=== PATIENT | male | born 1975 | race Caucasian/White ===

== ENCOUNTER 2016-06-05 21:35 | Inpatient (IN) | payer MEDICARE ==
[~2016-06-05] VITALS: Ht 188 cm; Wt 153.9 kg
--- NOTE | 2016-06-05 22:58 | PHYS DOC ---
Past Medical History Past Medical History: Anxiety, Depression Past Surgical History: No Surgical History Alcohol Use: None Drug Use: None Adult General Chief Complaint Chief Complaint: ABDOMINAL PAIN HPI HPI Patient is a 41 year old male who presents with cold symptoms. Patient reports since this weekend he has been having cough, chills, sweating, feeling like he can't breathe. Patient denies any chest pain. He does report a history of anxiety and panic attacks. He says he hasn't taken his Xanax since last week. He did see his PCP and started azithromycin today. No other acute complaints. Review of Systems Review of Systems Constitutional: Chills, sweating Eyes: Denies change in visual acuity or eye pain HENT: Denies nasal congestion or sore throat Respiratory: Cough, shortness of breath Cardiovascular: Denies chest pain GI: Denies abdominal pain, nausea, vomiting, bloody stools or diarrhea : Denies dysuria or hematuria Musculoskeletal: Denies back pain or joint pain Integument: Denies rash or skin lesions Neurologic: Denies headache, focal weakness or sensory changes Current Medications Current Medications Current Medications Medications (Trade) Dose Ordered Sig/Mariely Start Time Stop Time Status Last Admin Dose Admin Lorazepam 1 mg 1 mg 1X ONCE 06/05/16 23:15 06/05/16 23:16 DC 06/05/16 23:29 1 MG Sodium Chloride (Iv Sodium Chloride 0.9% 1000ml Bag) 1,000 ml @ 1,000 mls/hr 1X ONCE 06/06/16 00:00 06/06/16 00:59 DC 06/06/16 00:02 1,000 MLS/HR Allergies Allergies Allergies Coded Allergies Type Severity Reaction Last Updated Verified No Known Drug Allergies 06/05/16 No Physical Exam Physical Exam Constitutional: Well developed, well nourished. Markedly diaphoretic HENT: Normocephalic, atraumatic, bilateral external ears normal Eyes: EOMI, conjunctiva normal, no discharge Neck: Normal range of motion, no stridor Cardiovascular: Heart rate normal, regular rhythm, no murmur Lungs & Thorax: Bilateral breath sounds clear to auscultation Abdomen: Bowel sounds normal, soft, non-distended, mild epigastric TTP without guarding or rebound Skin: Warm, dry, no erythema, no rash Extremities: No obvious deformity, no edema Neurologic: Alert and oriented X 3, no gross deficits noted Psychologic: Anxious Current Patient Data Vital Signs Vital Signs Date Time Temp Pulse Resp B/P Pulse Ox O2 Delivery O2 Flow Rate FiO2 06/06/16 00:25 84 18 162/100 97 Room Air 06/05/16 22:32 99.1 99.1 Lab Values Laboratory Tests Test 06/05/16 22:10 06/05/16 22:26 Influenza Type A Antigen Negative (NEGATIVE) Influenza Type B Antigen Negative (NEGATIVE) White Blood Count 16.1x10^3/uL (4.0-11.0) H Red Blood Count 5.39x10^6/uL (4.30-5.70) Hemoglobin 16.4g/dL (13.0-17.5) Hematocrit 49.0% (39.0-53.0) Mean Corpuscular Volume 91fL (79-100) Mean Corpuscular Hemoglobin 31pg (25-35) Mean Corpuscular Hemoglobin Concent 34g/dL (31-37) Red Cell Distribution Width 12.9% (11.5-14.5) Platelet Count 297x10^3/uL (140-400) Neutrophils (%) (Auto) 75% (31-73) H Lymphocytes (%) (Auto) 18% (24-48) L Monocytes (%) (Auto) 7% (0-9) Eosinophils (%) (Auto) 0% (0-3) Basophils (%) (Auto) 0% (0-3) Neutrophils # (Auto) 12.0x10^3uL (1.8-7.7) H Lymphocytes # (Auto) 2.8x10^3/uL (1.0-4.8) Monocytes # (Auto) 1.1x10^3/uL (0.0-1.1) Eosinophils # (Auto) 0.1x10^3/uL (0.0-0.7) Basophils # (Auto) 0.0x10^3/uL (0.0-0.2) Sodium Level 141mmol/L (136-145) Potassium Level 4.0mmol/L (3.5-5.1) Chloride Level 103mmol/L (98-107) Carbon Dioxide Level 24mmol/L (21-32) Anion Gap 14 (6-14) Blood Urea Nitrogen 19mg/dL (8-26) Creatinine 1.2mg/dL (0.7-1.3) Estimated GFR (Cockcroft-Gault) 66.1 Glucose Level 115mg/dL (70-99) H Lactic Acid Level 3.0mmol/L (0.4-2.0) H Calcium Level 9.8mg/dL (8.5-10.1) Total Bilirubin 0.5mg/dL (0.2-1.0) Direct Bilirubin 0.1mg/dL (0.0-0.2) Aspartate Amino Transferase (AST) 33U/L (15-37) Alanine Aminotransferase (ALT) 59U/L (16-63) Alkaline Phosphatase 63U/L (46-116) Troponin I Quantitative < 0.017ng/mL (0.000-0.055) Total Protein 8.2g/dL (6.4-8.2) Albumin 4.6g/dL (3.4-5.0) Lipase 202U/L (73-393) Laboratory Tests 06/05/16 22:26 Laboratory Tests 06/05/16 22:26 EKG EKG EKG (my read): sinus rhythm, rate 84, normal axis, intervals wnl, no acute ischemic changes Radiology/Procedures Radiology/Procedures CXR (my read): Patchy opacity R lung Course & Med Decision Making Course & Med Decision Making Pertinent Labs and Imaging studies reviewed. (See chart for details) Patient is 41-year-old male who presents with cough, diaphoresis. Apparent respiratory infection, viral versus bacterial. Will obtain labs, EKG, chest x- ray to evaluate. Fluid bolus, dose of Ativan ordered for relief of symptoms. Labs notable for leukocytosis, elevated lactic acid. Given this, patient will need admission and coverage with antibiotics. Already had 500 mg azithromycin earlier today, will add Rocephin. Discussed with Dr. Almanza (national accounts recruiter for Dr. Pérez), will admit under his care for further evaluation and treatment. Dragon Disclaimer Dragon Disclaimer This electronic medical record was generated, in whole or in part, using a voice recognition dictation system. Departure Departure Impression: Primary Impression: Community acquired pneumonia Additional Impression: Elevated lactic acid level Disposition: ADMITTED INPATIENT Admitting Physician: Nawaf Almanza Condition: STABLE Referrals: PAVAN PÉREZ MD (PCP) Problem Qualifiers JEY SWANN MD Jun 05, 2016 22:58
[2016-06-05 23:11] LABS: BASO % 0 % (0-3); EOS % 0 % (0-3); HEMOGLOBIN 16.4 g/dL (13.0-17.5); LYMPH # 2.8 x10^3/uL (1.0-4.8); LYMPH % 18 % (24-48); MEAN CORPUSCULAR HEMOGLOBIN 31 pg (25-35); MEAN CORPUSCULAR HGB CONC 34 g/dL (31-37); MEAN CORPUSCULAR VOLUME 91 fL (79-100); MONO % 7 % (0-9); NEUT % 75 % (31-73); PLATELET COUNT 297 x10^3/uL (140-400); RED BLOOD COUNT 5.39 x10^6/uL (4.30-5.70); RED CELL DISTRIBUTION WIDTH 12.9 % (11.5-14.5); WHITE BLOOD COUNT 16.1 x10^3/uL (4.0-11.0)
[2016-06-05] MEDS ORDERED: LORAZEPAM 2 MG/ML VIAL IV ONE (23:15)
[2016-06-05 23:23] LABS: CALCIUM 9.8 mg/dL (8.5-10.1); CREATININE 1.2 mg/dL (0.7-1.3); GFR 66.1
[2016-06-05 23:29] LABS: ALBUMIN 4.6 g/dL (3.4-5.0); DIRECT BILIRUBIN 0.1 mg/dL (0.0-0.2); TOTAL BILIRUBIN 0.5 mg/dL (0.2-1.0); TOTAL PROTEIN 8.2 g/dL (6.4-8.2)
[2016-06-06 00:29] LABS: OBC FLU VALID
[2016-06-06] MEDS ORDERED: MORPHINE SULFATE 2 MG/ML DISP.SYRIN. IV PRN (01:30)
[2016-06-06] MEDS ORDERED: ACETAMINOPHEN 325 MG TABLET. PO PRN (01:30)
[2016-06-06] MEDS ORDERED: IV NORMAL SALINE 1000ML BAG 1,000 ML IV ONE ×2 (01:30)
[2016-06-06] MEDS ORDERED: ONDANSETRON PF 4 MG/2 ML VIAL. IV PRN (01:30)
[2016-06-06] MEDS ORDERED: CEFTRIAXONE 1GM IVPB FOR OMNI 50 ML IV ONE (01:30)
[2016-06-06 01:43] LABS: BILIRUBIN,URINE NEGATIVE (NEG); GLUCOSE,URINE NEGATIVE (NEG); NITRITE,URINE NEGATIVE (NEG); PH,URINE 5.5; PROTEIN,URINE NEGATIVE (NEG-TRACE); UROBILINOGEN,URINE 0.2 mg/dL (0.2 mg/dL)
[2016-06-06 01:49] LABS: BACTERIA,URINE 0 /HPF (0-FEW); RBC,URINE 0 /HPF (0-2); SQUAMOUS EPITHELIAL CELL,UR OCC /LPF; WBC,URINE OCC /HPF (0-4)
[2016-06-06 03:45] VITALS: BP 176/91
[2016-06-06] MEDS: IV NORMAL SALINE 1000ML BAG 1,000 ML IV SCH ×3 (04:34→21:08)
[2016-06-06] MEDS ORDERED: ALPR1TAB2 PO (05:14)
[2016-06-06] MEDS ORDERED: CITA40TA12 PO (05:14)
[2016-06-06] MEDS ORDERED: NICO1PAT21 TD (05:14)
[2016-06-06] MEDS ORDERED: ALPR2TAB2 PO (05:14)
--- NOTE | 2016-06-06 06:44 | EKG ---
[facility] [address] [place] [address] Test Date: 2016-06-05 Test Time: 22:15:49 Pat Name: LIO CHAIREZ Department: Room: 524 1 Gender: M [employer] Installer: : 1975 Requested By: JEY SWANN Order Number: [id number] Reading MD: Roberta Mullins Measurements Intervals [place] Rate: 84 P: 51 UT: 186 QRS: 11 QRSD: 98 T: 20 QT: 336 QTc: 400 Interpretive Statements SINUS RHYTHM NORMAL EKG RI6.01 No previous ECG available for comparison Electronically Signed On 06-11-2016 14:32:33 [employer] by Roberta Mullins
[2016-06-06 07:00] VITALS: BP 148/91
[2016-06-06 08:00] LABS: NEGATIVE OBC STREP NEG; POSITIVE OBC STREP POS
--- NOTE | 2016-06-06 08:04 | RAD ---
Indication cough. Dizziness. PA and lateral views of the chest were obtained. No prior imaging of the chest is available. The heart and pulmonary vessels appear normal. The lungs are clear. There is no pleural fluid or pneumothorax. IMPRESSION: No acute finding apparent in the chest
[2016-06-06] MEDS: CITALOPRAM 20 MG TABLET. PO SCH (08:17)
[2016-06-06] MEDS: ALPRAZOLAM 1 MG TABLET PO PRN ×3 (08:17→21:07)
[2016-06-06] MEDS ORDERED: AZITHRMYCN 500MG IVPB FOR OMNI 250 ML IV ONE (08:45)
--- NOTE | 2016-06-06 08:55 | PDOC ---
Provider Note Provider Note H&P dictated # [id number] Patricia CASILLAS MD Jun 06, 2016 08:55
[2016-06-06] MEDS ORDERED: AZITHROMYCIN 500 MG in IV NORMAL SALINE 250ML 250 ML IV ONE (09:00)
--- NOTE | 2016-06-06 09:59 | HP ---
ADMIT DATE: 06/06/2016 ADMISSION DIAGNOSES: Leukocytosis with elevated lactic acid and systemic inflammatory response syndrome, possible community-acquired pneumonia. HISTORY OF PRESENT ILLNESS: This is a 41-year-old white male with history of anxiety and panic disorder who has had a cold over the last week or so. He saw Dr. Traore in the office yesterday and was prescribed a Z-REBEKAH and took the first dose, but felt tightening in his throat and felt like he could not breathe and presented to the Emergency Room because of that. Evaluation there revealed a white count elevated at 16,000 and the lactic acid was elevated over 3. He had a low grade temperature. He denies cough or significant other pulmonary symptoms, but was initially thought on his x-ray to have an infiltrate. The radiologist reading of the infiltrate is that it is clear, though. He got admitted to the room this morning about 4:00 a.m., but had not had much sleep. A dose of Ativan in the Emergency Room did not allow him to sleep, but he just had a dose of Xanax. He remains anxious, but not particularly dyspneic. PAST MEDICAL HISTORY: Significant for hypertension, panic disorder, depression and anxiety. HOME MEDICATIONS: Include alprazolam 2 mg at bedtime and 1 mg q. 6h. p.r.n., Celexa 40 mg daily and he has been on a nicotine patch. ALLERGIES: He has no known drug allergies. FAMILY HISTORY: Noncontributory. SOCIAL HISTORY: Positive for past tobacco use. REVIEW OF SYSTEMS: Denies chest pain. RESPIRATORY: Positive for cold symptoms over the last week. ENT: Significant for some sensation of nasal fullness. Eyes are negative. ABDOMEN: Negative. GASTROINTESTINAL: Negative. GENITOURINARY: Negative. MUSCULOSKELETAL: He has had some vague numbness in the left lateral leg. Denies any other muscular pain or joint pains. He has not had any edema. PHYSICAL EXAMINATION: VITAL SIGNS: He has been afebrile since admission. His blood pressures have been as high as 176/91 currently. He is on room air with oxygen saturations in the 90s. GENERAL: He is anxious. He is not tachycardic or tachypneic. Sinuses do not appear full. HEENT: Conjunctivae are clear. No allergic features. CARDIOVASCULAR: Heart is regular rate and rhythm. LUNGS: Right side has some rhonchi and the left side is clear. ABDOMEN: Obese. EXTREMITIES: There is no clubbing, cyanosis or peripheral edema. LABORATORY DATA: Show white count 16.1, hemoglobin 16.4, hematocrit 49, platelets 297. There is a left shift with 75% neutrophils and only 18% lymphocytes. Chemistries: His lactic acid is 3 that has dropped down to 1.5 this morning. Troponin is negative. Chemistries are unremarkable with glucose of 115. Urinalysis is unremarkable. Serology is negative for flu A and B and for group A strep. Chest x-ray read by the radiologist is unremarkable. ASSESSMENT: Leukocytosis with lactic acidosis after a week of upper respiratory infection symptoms. He was treated as an outpatient starting yesterday with antibiotic, so likely he has got pneumonia with hydration show up on his chest x-ray tomorrow. PLAN: He is admitted. We will cover him with IV ceftriaxone and IV azithromycin. We will treat his panic. He is being hydrated per protocol. W Kimberly CASILLAS MD DR: GLORIA/ricki JOB#: [id number] / [id number]
[2016-06-06 11:00] VITALS: BP 140/95
[2016-06-06 15:00] VITALS: BP 137/95
[2016-06-06 19:00] VITALS: BP 149/94
--- NOTE | 2016-06-06 21:13 | ACF ---
Admission Forms Criteria PNEUMONIA, COMMUNITY ACQUIRED Clinical Indications for Admission to Inpatient Care ( Place 'X' for any and all applicable criteria): Admission is indicated for ANY ONE of the following (1)(2)(3): [ ]I. Hypoxemia indicated by ANY ONE of the following: [ ]a) Oxygen saturation less than 90% while breathing room air [ ]b) PO2 less than 60 mm Hg (8.0 kPa) while breathing room air [ ]c) Chronic lung disease with significant deterioration from baseline oxygenation [ ]II. Appropriate diagnostic testing and treatment unavailable in outpatient or recovery facility (eg,testing or infection control measures unavailable(10) [ ]III. Moderate-risk or high-risk category patients (Pneumonia Severity Index (PSI) class IV or V, or CURB-65 score of 3 or greater). [ ]IV. Outpatient treatment failure as indicated by ANY ONE of the following(9) : [ ]a) Failure to respond to antibiotic (eg, resistant organism) [ ]b) Clinically significant adverse effects from medication (eg, vomiting) [ ]c) Complications of pneumonia (eg, empyema, bacteremia) [ ]d) Significant worsening of comorbid cond necessitating inpatient care (eg, chronic heart failure) [ ]V. Intermediate-risk category patients (eg, PSI class III or CURB-65 score 2) who do not improve with initial therapy and observation. [ ]. Immunocompromised patients (eg, AIDS, chronic steroid use) at moderate or high risk based on clinical evaluation. [ ]VII. Complicated pleural effusions (eg, exudative, loculated) [X]VIII.Hemodynamic instability [ ] IX. Altered mental status that is severe or persistent. [ ]X. Dehydration that is severe or persistent. [ ]XI. Bacteremia [ ]XII. Respiratory finding (eg. tachypnea) that do not respond to outpatient or observation care treatment Extended stay beyond goal length of stay may be needed for (20) [ ]a) Unclear diagnosis [ ]b) Pleural disease [ ]c) Severe pneumonia or treatment failure (25 [ ]d) Respiratory failure (anticipate invasive or noninvasive ventilatory support) [ ]e) Abnormal serum electrolytes (serum Na concentration less than 135 mEq/L (mmol/L) (32)(33) [ ]f) Clinically significant comorbid illness (eg, heart failure, atrial fibrillation with rapid heart rate, alcohol withdrawal, renal insufficiency)(34)(35) [ ]g) Comorbid acute exacerbation of COPD(36) [ ]h) Concomitant diagnosis of malignancy that may be associated with malnutrition, immunologic impairment, or bronchial obstruction. [ ]i) Concomitant altered mental status [ ]j) Culture-identified Gram-negative or antibiotic-resistant organism (eg, Pseudomonas, methicillin-resistant Staphylococcus aureus)(30) [ ]k) Healthcare-associated pneumonia The original [facility] content created by [facility] [employer] has been revised. The portions of the content which have been revised are identified through the use of italic text or in bold, and [facility] has neither reviewed nor approved the modified material. All other unmodified content is copyright [facility] [employer]. Please see references footnoted in the original [facility] edition 2016 Admission Criteria Met?: Yes MAGDALENA MESSER Jun 06, 2016 21:13
[2016-06-06 23:00] VITALS: BP 132/86
[2016-06-07 04:17] LABS: BASO % 0 % (0-3); EOS % 2 % (0-3); HEMATOCRIT 43.1 % (39.0-53.0); HEMOGLOBIN 14.5 g/dL (13.0-17.5); LYMPH % 45 % (24-48); MEAN CORPUSCULAR HEMOGLOBIN 31 pg (25-35); MEAN CORPUSCULAR HGB CONC 34 g/dL (31-37); MEAN CORPUSCULAR VOLUME 92 fL (79-100); MONO % 9 % (0-9); NEUT % 44 % (31-73); PLATELET COUNT 240 x10^3/uL (140-400); RED BLOOD COUNT 4.71 x10^6/uL (4.30-5.70); RED CELL DISTRIBUTION WIDTH 12.8 % (11.5-14.5)
[2016-06-07 04:28] LABS: CALCIUM 8.7 mg/dL (8.5-10.1); CREATININE 1.1 mg/dL (0.7-1.3); GFR 73.1; POTASSIUM 3.7 mmol/L (3.5-5.1)
[2016-06-07] MEDS ORDERED: CEFTRIAXONE SODIUM 1 GM in IV NORMAL SALINE 50ML 50 ML IV SCH (05:00)
[2016-06-07 07:00] VITALS: BP 139/98
[2016-06-07] MEDS: CITALOPRAM 20 MG TABLET. PO SCH (08:06)
--- NOTE | 2016-06-07 08:40 | RAD ---
Indication shortness of breath. Cough. PA and lateral views of the chest were obtained. Comparison is made to an examination 06/05/2016. There is now a patchy ill-defined area of volume loss, on the PA view, at the right lung base not definitely present previously. Findings may reflect atelectasis or an inflammatory focus. The left lung is clear. The heart and pulmonary vessels are normal. Significant pleural fluid is not seen and there is no pneumothorax. IMPRESSION: Suspect minimal patchy infiltrate at the right lung base
[2016-06-07 11:30] VITALS: BP 152/97
--- NOTE | 2016-06-07 12:41 | DISCH ---
DISCHARGE INSTRUCTIONS Condition on Discharge Condition on Discharge: Stable Activity After Discharge Activity Instructions for Disc: Activity as tolerated Diet after Discharge Diet after Discharge: Regular Contacting the [facility] after DC Call your doctor for: Fever greater than 100 Follow-Up Follow up with: Dr. Traore within 2 weeks for f/u of pneumonia Follow Up With: finish [facility] Treatment/Equipment after DC Adaptive Equipment Issued: None Patricia CASILLAS MD Jun 07, 2016 12:40
[2016-06-07] MEDS ORDERED: AZIT250T6 PO (12:42)
--- NOTE | 2016-06-07 12:47 | PDOC ---
Provider Note Provider Note discharge dictated # [id number] Patricia CASILLAS MD Jun 07, 2016 12:46
--- NOTE | 2016-06-07 23:25 | DS ---
DATE OF DISCHARGE: 06/07/2016 ADMISSION DIAGNOSIS: Pneumonia. DISCHARGE DIAGNOSES: Community-acquired pneumonia with elevated lactic acid, leukocytosis with infiltrate on followup chest x-ray. HISTORY: This is a 41-year-old white male with anxiety, who saw Dr. Traore in the office with cough and cold symptoms and was started on a Z-REBEKAH. His symptoms worsened. He came to the Emergency Room. He was seen and evaluated. His initial x-ray looked normal, but his white count was elevated, his lactic acid was elevated and he was admitted with IV hydration, IV ceftriaxone and started on IV azithromycin. Since admission, he has felt much better. He had not had any fever. He had not had any chills or night sweats. His upper respiratory symptoms have improved significantly. He has not really had much cough. Followup chest x-ray revealed a patchy lower lobe infiltrate consistent with his pneumonia. His white count returned to normal, his lactic acid returned to normal and he is tolerating an oral diet. He will complete his 4 days of azithromycin 250 mg daily which should resolve the rest of his infection. He will continue his home meds. He is due for refills on his Xanax tomorrow. He has a citalopram and a nicotine patch if needed. We will follow up with Dr. Traore in the office within 2 weeks. Diet and activity as tolerated. His exam shows his lungs to be clear. Heart to be regular rate and rhythm. ENT, he is minimally congested without significant sinus drainage or sinus pain or pressure. He has been quite anxious while here, but had not had any panic symptoms. His mother stayed with him most of the hospital course. W Kimberly CASILLAS MD DR: GLORIA/ricki JOB#: [id number] / [id number]
== END 2016-06-07 13:48 | disposition home or self-care (01) | DRG 871 ==
LOC: ER 21:35 → 5 NORTH 06-06 01:18
PROVIDERS: ADMIT Family Medicine; ATTEND Family Medicine
DX: A41.9 Sepsis, unspecified organism (principal); J18.9 Pneumonia, unspecified organism; E87.2 Acidosis; Z68.41 Body mass index [BMI] 40.0-44.9, adult; I10 Essential (primary) hypertension; F41.0 Panic disorder [episodic paroxysmal anxiety]; F32.9 Major depressive disorder, single episode, unspecified; F41.9 Anxiety disorder, unspecified; D72.829 Elevated white blood cell count, unspecified; E66.9 Obesity, unspecified; Z87.891 Personal history of nicotine dependence
CPT/HCPCS: 36415; 71020; 80048; 80076; 81001; 83605; 83690; 84484; 85027; 87040; 87070; 87804; 87880; 93005; 96361; 96374; J0456; J0690; J0696; J2060; J7030; J7050; 99285-25

== ENCOUNTER → 2016-12-14 | Outpatient (CLI) | payer MEDICARE ==
[~2016-12-14] MED LIST: ALPR1TAB2 PO; ALPR2TAB2 PO; AZIT250T6 PO; CITA40TA12 PO; NICO1PAT21 TD
--- NOTE | 2016-12-14 12:09 | KCIC ---
INDICATION: Low back pain and left leg pain and numbness for a few months. TECHNIQUE: Lumbosacral spine series with oblique views contains 5 images. No comparison is available. FINDINGS: There is no fracture. Vertebral body height is maintained. There is no malalignment. Posterior elements at S1 are incomplete, likely developmental. IMPRESSION: Negative for fracture. Electronically signed by: Amrik Alcocer MD (12/14/2016 12:05 PM) [id number]
== END | disposition home or self-care (01) ==
LOC: KCIC 10:32
PROVIDERS: ATTEND Family Medicine
DX: M54.42 Lumbago with sciatica, left side (principal)
CPT/HCPCS: 72110

== ENCOUNTER → 2019-04-17 | Outpatient (CLI) | payer MEDICARE ==
--- NOTE | 2019-04-17 14:47 | KCIC ---
EXAM: Left foot, 3 views. HISTORY: Pain. COMPARISON: None. FINDINGS: 3 views of the left foot are obtained. There is no acute fracture, dislocation or subluxation. There is a suspected 10 mm cyst within the proximal aspect of the first proximal phalanx. IMPRESSION: 1. No acute osseous finding. 2. 10 mm cyst within the proximal aspect of the first proximal phalanx. Electronically signed by: Monserrat Hood MD (04/17/2019 2:44 PM) [place] [id number]
== END | disposition home or self-care (01) ==
LOC: KCIC 13:46
PROVIDERS: ATTEND Family Medicine
DX: M85.472 Solitary bone cyst, left ankle and foot (principal)
CPT/HCPCS: 73630